=== PATIENT | male | born 1990 | race Caucasian/White ===

== ENCOUNTER 2024-11-06 20:21 | Emergency (ER) | payer OTHER, SELFPAY ==
[2024-11-06 20:40] VITALS: BP 126/86; PULSE 77; RESP 18; TEMP 36.8; O2SAT 98; BMI 43.1
[2024-11-06 23:23] VITALS: PULSE 73; O2SAT 99
[2024-11-06 23:32] VITALS: BP 118/89; PULSE 83; O2SAT 99
--- NOTE | 2024-11-06 23:32 | XRR_ITS ---
PROCEDURE INFORMATION: Exam: XR Right Wrist Exam date and time: 11/06/2024 11:45 PM Age: 34 years old Clinical indication: Pain; Wrist; Right TECHNIQUE: Imaging protocol: Radiologic exam of the right wrist. Views: 3 or more views. COMPARISON: No relevant prior studies available. FINDINGS: Bones/joints: Normal. Soft tissues: Normal. XR/XR wrist RT min 3V* [id number] IMPRESSION: No acute fracture or dislocation.
[2024-11-06 23:52] LABS: Basophils # 0.1 10^3/uL (0.0-0.1); Basophils % 0.6 %; Eosinophils # 0.1 10^3/uL (0.0-0.8); Hematocrit 45.3 % (37-53); Lymphocytes # 2.3 10^3/uL (0.8-4.8); Lymphocytes % 26.3 %; Mean Corpuscular HGB Conc 32.7 g/dL (30-55); Mean Corpuscular Hemoglobin 28.1 pg (27-33); Mean Corpuscular Volume 86.1 fl (82-101); Mean Platelet Volume 9.2 fL (7.4-10.4); Monocytes # 0.7 10^3/uL (0.2-0.9); Monocytes % 7.8 %; Neutrophils # 5.58 10^3/uL (1.8-7.7); Neutrophils % 64.1 %; Nucleated Red Blood Cells % 0 %; Platelet Count 242 10^3/cmm (157-399); Red Blood Count 5.26 10^6/uL (3.85-5.65); Red Cell Distribution Width 12.7 % (12.1-15.1); White Blood Count 8.71 10^3/uL (3.29-11.43)
[2024-11-07 00:10] LABS: Alanine Aminotransferase 30 U/L (0-41); Alkaline Phosphatase 93 U/L (40-130); Aspartate Amino Transferase 21 U/L (0-40); Blood Urea Nitrogen 15 mg/dL (6-20); Carbon Dioxide 23 mmol/L (22-29); Chloride 102 mmol/L (98-107); Globulin 3.6 g/dL (1.3-4.6); Glucose 105 mg/dL (65-115); Osmolality Calculated 287 mOsm/kg (285-295); Sodium 138 mmol/L (136-145); Total Bilirubin 0.3 mg/dL (0.15-1.2); Total Protein 7.6 g/dL (6.6-8.7)
--- NOTE | 2024-11-07 00:23 | W.ED.EXTPRO ---
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 He states that he did not sleep on his arm. He woke up with a throbbing pain. No history of coagulopathy. 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. No fevers. This occurred just prior to arrival. He describes his pain in his wrist and mid arm area. No injury/trauma Associated symptoms: Deny chest pain, fever(s) or rash Related Data Allergies Allergy/AdvReac Type Severity Reaction Status Date / Time No Known Allergies Allergy Verified 11/06/24 20:46 Review of Systems General: Reports: 10 or more systems reviewed and unremarkable except in HPI and below Const: Denies: fever(s) or chills Eyes: Denies: change in vision or blurry vision ENMT: Denies: throat pain or mouth pain Card: Denies: chest pain or palpitations Resp: Denies: dyspnea or productive cough GI: Denies: abdominal pain, nausea or vomiting : Denies: flank pain Musc: Reports: extremity pain and joint pain Skin/Breast: Denies: rash or pruritus Neuro: Denies: headache(s) or numbness in extremities Psych: Denies: anxiety or depression Endo: Denies: polyuria or polydipsia Physical Exam Const: COMMON NORMALS: no acute distress, average body habitus and patient oriented x3 GENERAL APPEARANCE: cooperative HENMT: COMMON NORMALS: normocephalic and atraumatic HEAD & SCALP: normocephalic and atraumatic FACE & SINUS: normal facial exam Neck/C-Spine: COMMON NORMALS: full ROM and no lymphadenopathy Chest: COMMONS NORMALS: normal inspection of the chest Resp: COMMON NORMALS: normal respiratory effort, No retractions and clear to auscultation bilaterally AUSCULTATION: clear to auscultation bilaterally Cardio: COMMON NORMALS: regular rate and regular rhythm RATE: regular rate RHYTHM: regular rhythm GI: COMMON NORMALS: Normal to inspection, nondistended, normoactive bowel sounds present, Soft to palpation and non-tender PALPATION: Yes Soft to palpation : COMMON NORMALS: Yes no CVA tenderness BLADDER/KIDNEY EXAM: Yes no CVA tenderness Back/Pelvis: COMMON NORMALS: no CVA tenderness Extremity: RIGHT UPPER EXTREMITY: Yes wrist Right wrist: Yes inspection (cannot discern abnormality), Yes palpation (msk pain) and Yes ROM Neuro: COMMON NORMALS: patient oriented x3 Psych: COMMON NORMALS: mental status grossly normal and Normal thought process present THOUGHT PROCESS: Normal thought process present Skin: COMMON NORMALS: no rashes or lesions noted and no wounds GENERAL SKIN EXAM: no rashes or lesions noted Course Vital Signs: Vital signs: Vital Signs Temperature 98.2 F 11/06/24 20:40 Pulse Rate 80 11/07/24 00:52 Respiratory Rate 16 11/07/24 00:52 Blood Pressure 146/87 11/07/24 00:52 Pulse Oximetry 97 11/07/24 00:52 Oxygen Delivery Me thod Room Air 11/06/24 23:32 MDM - Extremity (Nontraumatic) Medical Decision Making 34-year-old male that awoke with sudden arm pain. Initially I was considering Saturday night palsy, however patient did not lay on his arm. His x-ray is negative. His D-dimer is negative. No other red flags. He will be given Toradol, Norflex x 1, and return to his primary care. He has been advised with analgesic for Tylenol and ibuprofen. Lab Data 11/06/24 23:40 11/06/24 23:40 Radiology Impressions Wrist X-Ray 11/06/24 23:32 IMPRESSION: No acute fracture or dislocation. Laboratory Results WBC 8.71 10^3/uL (3.29-11.43) 11/06/24 23:40 RBC 5.26 10^6/uL (3.85-5.65) 11/06/24 23:40 Hgb 14.80 g/dL (11.27-16.99) 11/06/24 23:40 Hct 45.3 % (37-53) 11/06/24 23:40 MCV 86.1 fl (82-101) 11/06/24 23:40 MCH 28.1 pg (27-33) 11/06/24 23:40 MCHC 32.7 g/dL (30-55) 11/06/24 23:40 RDW 12.7 % (12.1-15.1) 11/06/24 23:40 Plt Count 242 10^3/cmm (157-399) 11/06/24 23:40 MPV 9.2 fL (7.4-10.4) 11/06/24 23:40 Neut % (Auto) 64.1 % 11/06/24 23:40 Lymph % (Auto) 26.3 % 11/06/24 23:40 Towner % (Auto) 7.8 % 11/06/24 23:40 Eos % (Auto) 1.0 % 11/06/24 23:40 Baso % (Auto) 0.6 % 11/06/24 23:40 Neut # (Auto) 5.58 10^3/uL (1.8-7.7) 11/06/24 23:40 Lymph # (Auto) 2.3 10^3/uL (0.8-4.8) 11/06/24 23:40 Towner # (Auto) 0.7 10^3/uL (0.2-0.9) 11/06/24 23:40 Eos # (Auto) 0.1 10^3/uL (0.0-0.8) 11/06/24 23:40 Baso # (Auto) 0.1 10^3/uL (0.0-0.1) 11/06/24 23:40 Nucleated RBC % (auto) 0 % 11/06/24 23:40 Nucleated RBCs # 0.0 /100WBC 11/06/24 23:40 D-Dimer 0.30 ug/mLFEU (0-0.59) 11/06/24 23:40 Sodium 138 mmol/L (136-145) 11/06/24 23:40 Potassium 4.0 mmol/L (3.5-5.1) 11/06/24 23:40 Chloride 102 mmol/L (98-107) 11/06/24 23:40 Carbon Dioxide 23 mmol/L (22-29) 11/06/24 23:40 Anion Gap 17.0 (5-19) 11/06/24 23:40 BUN 15 mg/dL (6-20) 11/06/24 23:40 Creatinine 1.0 mg/dL (0.7-1.2) 11/06/24 23:40 GFR Calculation 85.0 mL/min (90-130) L 11/06/24 23:40 Glucose 105 mg/dL (65-115) 11/06/24 23:40 Calculated Osmolality 287 mOsm/kg (285-295) 11/06/24 23:40 Calcium 9.0 mg/dL (8.5-10.5) 11/06/24 23:40 Total Bilirubin 0.3 mg/dL (0.15-1.2) 11/06/24 23:40 AST 21 U/L (0-40) 11/06/24 23:40 ALT 30 U/L (0-41) 11/06/24 23:40 Alkaline Phosphatase 93 U/L (40-130) 11/06/24 23:40 Total Protein 7.6 g/dL (6.6-8.7) 11/06/24 23:40 Albumin 4.0 g/dL (3.5-5.2) 11/06/24 23:40 Globulin 3.6 g/dL (1.3-4.6) 11/06/24 23:40 All radiology interpretation(s) finalized by discharge ED provider radiology interpretation(s): No acute findings Discharge Plan Discharge Patient Disposition: Home Clinical Impression: Acute pain of right wrist Condition: Stable Discharge Orders: Discharge ED (Routine); Ordered 11/07/24 Ordered By: Jolie Pablo Discharge Diet: Usual diet and Low Salt Discharge Activity: Resume usual activity Patient Instructions: Wrist Sprain (ED), Patient Portal & [place] Instructions Activity Restrictions/Additional Instructions: Tylenol and ibuprofen for pain Take tonight off. Return to work tomorrow. Follow-up with your primary care physician regarding your pain. You will need further evaluation by your primary care. You may utilize a Velcro brace to the arm for help with pain. You may ice this area to help with pain. Stand Alone Forms: Work/School Release Print Language: Burmese Coding Level of Care Code ED [employer]ne[employer]house [employer] for Gael Maciel
[2024-11-07] MEDS: ketorolac 30 mg/mL INJ 10 MG IM (00:45)
[2024-11-07] MEDS: orphenadrine 30 mg/mL Inj 2 mL 60 MG IM (00:45)
[2024-11-07 00:52] VITALS: BP 146/87; PULSE 80; RESP 16; O2SAT 97
--- NOTE | 2024-11-10 11:09 | DCPLANNER ---
Medical Decision Making 34-year-old male that awoke with sudden arm pain. Initially I was considering Saturday night palsy, however patient did not lay on his arm. His x-ray is negative. His D-dimer is negative. No other red flags. He will be given Toradol, Norflex x 1, and return to his primary care. He has been advised with analgesic for Tylenol and ibuprofen. Message sent to Clinics to establish PCP.
== END 2024-11-07 00:51 | disposition home or self-care (01) ==
PROVIDERS: Emergency Provider Physician Assistant
DX: M25.531 Pain in right wrist (principal)
CPT/HCPCS: 73110; 80053; 85025; 85378; 96372; 99284; J1885; J2360